=== PATIENT | male | born 1995 | race Caucasian/White ===

== ENCOUNTER 2018-08-26 09:08 | Emergency (ER) | payer SELFPAY ==
[2018-08-26] MEDS ORDERED: SOD CHLORIDE 0.9% 1,000 ML IV (09:26)
[2018-08-26] MEDS ORDERED: LORAZEPAM 2 MG INJ IV (09:26)
== END 2018-08-26 10:23 | disposition home or self-care (01) ==
LOC: E/R 09:08
DX: F41.9 Anxiety disorder, unspecified (principal)
CPT/HCPCS: 99283

== ENCOUNTER 2019-02-01 23:33 | Emergency (ER) | payer OTHER | END 2019-02-02 03:27 | disposition left against medical advice (07) | LOC: FTE 23:33 | DX: Z53.21 Procedure and treatment not carried out due to patient leaving prior to being seen by health care provider (principal) ==